=== PATIENT | male | born 1995 | race Native Hawaiian/Other Pacific Islander ===

== ENCOUNTER → 2018-08-15 07:36 | Outpatient (CLI) | payer OTHER | END | disposition home or self-care (01) | LOC: AMB 07:36 | DX: Z04.3 Encounter for examination and observation following other accident (principal) ==

== ENCOUNTER 2018-08-15 08:30 | Emergency (ER) | payer OTHER ==
[~2018-08-15] VITALS: Ht 177.8 cm; Wt 56.7 kg
[2018-08-15 08:36] VITALS: BP 134/95; TEMP 98.1
== END 2018-08-15 09:40 | disposition left against medical advice (07) ==
LOC: ED 08:30
DX: Z04.1 Encounter for examination and observation following transport accident (principal)
CPT/HCPCS: 99283